=== PATIENT | female | born 1985 | race Caucasian/White ===

== ENCOUNTER 2018-05-08 12:24 | Emergency (ER) | payer OTHER ==
[~2018-05-08] VITALS: Ht 172.7 cm; Wt 93.0 kg
[2018-05-08] MEDS ORDERED: PROZAC 20 MG20 MG PO (12:35)
[2018-05-08] MEDS ORDERED: VITAMIN D1000 UNI1 PO (12:36)
[2018-05-08] MEDS ORDERED: WELLBUTRIN 75 M75 M1 PO (12:36)
[2018-05-08] MEDS ORDERED: CENTRUM SILVER1 EAC4 PO (12:36)
[2018-05-08] MEDS ORDERED: IBUPROFEN 800800 MG PO (13:20)
[2018-05-08 13:44] VITALS: BP 105/61
== END 2018-05-08 13:45 | disposition home or self-care (01) ==
LOC: M.ERS 12:24
DX: G56.03 Carpal tunnel syndrome, bilateral upper limbs (principal)